=== PATIENT | female | born 1955 | race Caucasian/White ===

== ENCOUNTER 2022-07-31 15:23 | Outpatient (CLI) | payer OTHER, SELFPAY ==
[2022-07-31 12:10] LABS: Albumin* 4.3 g/dL (3.3-5.0); Chloride* 106 mmol/L (96-114); Sodium* 137 mmol/L (135-149)
[2022-07-31 12:11] LABS: Potassium* 4.4 mmol/L (3.6-5.1)
[2022-07-31 12:13] LABS: Alanine Aminotransferase* 17 U/L (4-35); Alkaline Phosphatase* 68 U/L (40-150); Aspartate Amino Transferase* 25 U/L (12-35); Bilirubin Total* 0.6 mg/dL (0.1-1.5); Blood Urea Nitrogen* 15 mg/dL (7-30); Calcium* 9.5 mg/dL (8.4-10.6); Carbon Dioxide* 25 mmol/L (20-32); Cholesterol* 166 mg/dL (90-199); Creatinine* 0.8 mg/dL (0.5-1.5); Estimated Glomerular Filt Rate 82 ml/min; HDL Cholesterol* 78 mg/dL (>=50); LDL Cholesterol Calculated 72 mg/dL (<100); Total Protein* 6.9 g/dL (6.0-8.3); Triglycerides* 78 mg/dL (40-149)
[2022-07-31 12:29] LABS: Glucose* 112 mg/dL (60-115)
[2022-07-31 12:30] LABS: Vitamin D 25 Hydroxy* 37 ng/mL (30-80)
== END 2022-07-31 15:24 | disposition home or self-care (01) ==
PROVIDERS: PCP Family Medicine; Visit Provider Family Medicine
DX: Z01.419 Encounter for gynecological examination (general) (routine) without abnormal findings (principal); E78.5 Hyperlipidemia, unspecified; R73.03 Prediabetes; M81.0 Age-related osteoporosis without current pathological fracture
CPT/HCPCS: 80053; 80061; 82306

== ENCOUNTER 2023-08-10 08:22 | Outpatient (CLI) | payer MEDICARE, BC, SELFPAY | END 2023-08-10 08:23 | disposition home or self-care (01) | PROVIDERS: PCP Internal Medicine; Referring Provider Internal Medicine; Visit Provider Internal Medicine | DX: R73.03 Prediabetes (principal); E78.5 Hyperlipidemia, unspecified; M81.0 Age-related osteoporosis without current pathological fracture | CPT/HCPCS: 80061; 82306 ==

== ENCOUNTER 2023-09-26 15:24 | Outpatient (CLI) | payer MEDICARE, BC, SELFPAY ==
--- NOTE | 2023-09-26 15:30 | CRLHL7_ITS ---
For Patients: As a result of the Century Cures Act, medical imaging exams and procedure reports are released immediately into your electronic medical record. You may view this report before your referring provider. If you have questions, please contact your health care provider. DXA BONE MINERAL DENSITY STUDY Current height (in): 63.0. Weight (lb): 130.0. Menopause age: 56. Ethnicity: White. Reason for exam: Osteopenia. 1. Have you had a previous hip or vertebral fracture? No. 2. Have you had any fractures during your adult life which did not result from significant trauma (e.g., auto accident)? No. 3. Did either of your parents have a hip fracture? No. 4. Do you smoke? No. 5. Have you ever taken Glucocorticoids? No. 6. Do you have rheumatoid arthritis? No. 7. Do you have secondary osteoporosis? No. 8. Do you drink 3 or more alcoholic drinks per day: No. 9. Are you being treated for osteoporosis? Yes. 10. Have you ever taken any of the following medications: Actonel, Evista, Fosamax, Miacalcin, Reclast, Boniva, Forteo, HRT (i.e. estrogen/hormone therapy), Protelos, Prolia, Vitamin D, Calcium, other ??? please specify. ANSWER: Yes, Fosamax, vitamin D. 11. Do you have any of the following medical conditions: Anorexia or bulimia, asthma or emphysema, end stage renal disease, hyperparathyroidism, any seizure disorders, cancer, inflammatory bowel diseases, hysterectomy, other ??? please specify. ANSWER: No. 12. What was your maximum height (inches)? 64. 13. Do you perform weight bearing exercise regularly? No. 14. Do you regularly consume dairy products? Yes. 15. Do you drink caffeinated beverages? Yes. 16. At what age did your period start? 13. 17. Are you premenopausal? No. 18. How many full-term pregnancies have you had? 2. 19. Have you ever missed your period for more than 6 months in a row (not including or menopause)? No. TECHNIQUE: Bone mineral density study was performed using the [employer]. FINDINGS: The results of the study expressed as bone mineral density (BMD) are as follows: Lumbar spine L1 to L4: BMD: 0.625 g/cm2. T-score: -3.8. Z-score: -1.9. Neck Left: BMD: 0.568 g/cm2. T-score: -2.5. Z-score: -0.9. Right: BMD: 0.552 g/cm2. T-score: -2.7. Z-score: -1.1. Total Left: BMD: 0.675 g/cm2. T-score: -2.2. Z-score: -0.9. Right: BMD: 0.689 g/cm2. T-score: -2.1. Z-score: -0.7. IMPRESSION: Osteoporosis. *Comparison exams done prior to 03/2020 were performed on different unit, [facility]. COMPARISON: Compared with scan of 06/09/2020, the bone mineral density has decreased by 3.3 percent at the spine and decreased by 0.3 percent at the hip. Alvaro Manuel M.D. Diagnostic Radiologist [email or web address] Transcribed: 10:09 am DW/Dictated by: Alvaro Manuel MD @ 10/01/2023 6:40:00 AM (Electronically Signed)
== END 2023-09-26 15:25 | disposition home or self-care (01) ==
LOC: RAD 15:26
PROVIDERS: PCP Internal Medicine; Visit Provider Internal Medicine
DX: M81.0 Age-related osteoporosis without current pathological fracture (principal)
CPT/HCPCS: 77080

== ENCOUNTER 2024-08-13 08:02 | Outpatient (CLI) | payer MEDICARE, BC, SELFPAY ==
--- OUTSIDE RECORDS SUMMARY | 2024-08-13 10:38 | XMS_ITS | Clinical Summary ---
Author Organization [facility] Address [place], [place] [address] Care Team Providers Care Yard Assistant Name Role Phone Shira Szymanski MD Primary Care Provider [phone] Allergies No known active allergies Medications Medication Sig Dispensed Refills Start Date End Date Status CLARITIN 10 MG TAB take 1 tablet (10 mg) by oral route once daily 0 08/08/2007 Active FLUTICASONE 50 MCG/ACTUATION NASAL SPRAY, SUSP inhale 2 sprays in each nostril by intranasal route once daily 3 bottles 3 09/09/2007 Active Ventolin HFA 90 mcg/actuation inhaler 07/22/2021 Active alendronate (FOSAMAX) 70 mg tablet TAKE ONE TABLET BY MOUTH EVERY 7 DAYS 10/20/2021 Active rosuvastatin (CRESTOR) 5 mg tablet Take 5 mg by mouth once daily. 10/19/2021 Active sertraline (ZOLOFT) 50 mg tablet Take 50 mg by mouth once daily. 10/31/2021 Active dorzolamide-timolol , PF, 2-0.5 % ophthalmic solution INSTILL 1 DROP INTO LEFT EYE TWICE A DAY 10/31/2021 Active Active Problems Problem Noted Date Diagnosed Date Adjustment disorder with mixed anxiety and depre ssed mood 10/16/2012 Dysthymic disorder 03/10/2008 Unspecified asthma(493.90) 09/09/2007 Allergic rhinitis, cause unspecified 09/09/2007 Immunizations Name Administration Dates Next Due Hepatitis A (Adult) 10/12/2006,06/25/2003 Inactivated Polio Vaccine 08/08/2007 Influenza A (H1N1), Inactiva tea (Age >=3 Years) 10/18/2009 Influenza, IIV3 (Age >=3 years) 07/16/20 12,08/10/2011,08/15/2010,06/29,08/25/2008,08/08/2007 Meningococcal Vaccine (Menactra) 08/08/2007 Rabies Vaccine 09/17/2007,08/29/2007,08/22/2007 09/15/2007 Td (Age >=7 Years) 06/25/2003 Yellow Fever 08/08/2007 Social History Tobacco Use Types Packs/Day Years Used Date Smoking Tobacco: Never Smokeless Tobacco: Never Tobacco Cessation:Counseling Given: Yes Alcohol Use Standard Drinks/Week Comments Yes 0 (1 standard drink = 0.6 oz pur e alcohol) Sex and Gender Information Value Date Recorded Sex Assigned at Not on file Gender Identity Not on file Sexual Orientation Not on file Obstetrics History Last Filed Vital Signs Vital Sign Reading Time Taken Comments Blood Pressure 102/68 11/16/2021 2:18 PM TIRE SETTER tow er Pulse 82 11/16/2021 2:18 PM TIRE SETTER Temperature 36.5 ??C (97.7 ??F) 09/22/2014 7:07 AM CS T Respiratory Rate 14 09/22/2014 9:03 AM TIRE SETTER Oxygen Saturation 95% 11/16/2021 2:18 PM TIRE SETTER Inhaled Oxygen Concentration - - Weight 62.6 kg (138 lb) 11/16/2021 2:18 PM TIRE SETTER Height 160 cm (5' 2.99) 09/18/2014 8:13 AM TIRE SETTER Body Mass Index 24.45 09/18/2014 8:13 AM TIRE SETTER Plan of Treatment Health Maintenance Due Date Last Done Comments Tdap 1967 Depression screening for age 12+ 1968 BMI (ht and wt on same day) for age 18+ 1974 Hepatitis C screening for ag e 18-79 1974 Colonoscopy through age 75 2001 Lipids for age 45-75 2001 Zoster (shingles) series for age 50+ (1 of 2) 2006 Mammogram for age 45-75 01/21/2009 01/22/2008 Tetanus booster 06/25/2013 06/25/2003 DEXA/DXA scan for age 65+ 2021 Pneumococcal series for age 65+ (1 of 1 - PCV) 2021 COVID-19 vaccine series (4 - 2023- season) 2024 09/09/2021, 02/01/2021, 01/11/2021 Influenza for age 65+ 06/29/2024 07/16/2012 , 08/10/2011, 08/15/2010, Additional history exists Medical Devices Implanted Type Area Buckle Gluer Device Identifier Shelf Expiration Date Model / Serial / Lot Lens Iol Zma00 19.5 - [id number] Implanted:Qty: 1 on 09/22/2014 by Alvaro Cabrera MD at [facility] Left: Eye [employer] 03/27/2019 [id number]# / [id number] / Procedures Procedure Name Priority Date/Time Associated Diagnosis Comments XR MAMMO BILAT SCREEN FFDM (IA) Routine 01/22/2008 9:16 AM CDT Screening Mammogram Other from Last 3 Months or Most Recently Relevant to Health Maintenance Results * XR MAMMO BILAT SCREEN FFDM (01/22/2008 9:16 AM CDT) MAMMOGRAM ACR 1 Negative Anatomical Region Laterality Modality BREASTS, Breast Left, Breast Right Bilateral Mammography 01/22/2008 9:16 AM CDT Narrative 01/22/2008 3:37 PM CDT Please see scanned document for results of this study. Procedure Note Yohan Alberto DO - 01/22/2008 Please see scanned document for results of this study. Mayela Garnica PRESIDENT PRACTICING UROLOGIST MAMMO from Last 3 Months or Most Recently Relevant to Health Maintenance Advance Directives * Full Code (Latest Code Status on File) Date Activated Date Inactivated Comments 09/22/2014 6:58 AM 09/22/2014 11:37 AM Care Teams Yard Assistant Relationship Specialty Start Date End Date Shira Szymanski MD PCP - General 12/22/09
== END 2024-08-13 08:03 | disposition home or self-care (01) ==
LOC: NFLDREF 10:31
PROVIDERS: PCP Internal Medicine; Referring Provider Internal Medicine; Visit Provider Internal Medicine
DX: E78.5 Hyperlipidemia, unspecified (principal); M81.0 Age-related osteoporosis without current pathological fracture; R73.03 Prediabetes
CPT/HCPCS: 80061; 82306

== ENCOUNTER 2024-11-06 15:16 | Outpatient (CLI) | payer MEDICARE, BC, SELFPAY ==
--- NOTE | 2024-11-06 15:20 | CRLHL7_ITS ---
For Patients: As a result of the Century Cures Act, medical imaging exams and procedure reports are released immediately into your electronic medical record. You may view this report before your referring provider. If you have questions, please contact your health care provider. BILATERAL SCREENING MAMMOGRAM WITH COMPUTER-AIDED DETECTION AND TOMOSYNTHESIS TECHNIQUE: CC and MLO views were obtained. These mammographic images have been obtained using full-field digital technique. These mammographic images were interpreted with the benefit of computer-aided detection. Breast tomosynthesis was used in this interpretation. COMPARISON FILM: 04/03/23, 03/24/22, 12/13/20. FINDINGS: There are scattered areas of fibroglandular density. IMPRESSION: There is no radiographic evidence for malignancy. ASSESSMENT: BI-RADS Category 1: Negative RECOMMENDATION: Routine screening mammogram in 1 year. A lay language report of this examination will be provided to the patient. ALVARO MCNAIR M.D. Diagnostic Radiologist [email or web address] Transcribed: 11/10/2024, 10:[address]/Dictated by: Alvaro Mcnair MD @ 11/07/2024 11:48:00 AM (Electronically Signed)
== END 2024-11-06 15:17 | disposition home or self-care (01) ==
LOC: MAMMO 15:18
PROVIDERS: PCP Internal Medicine; Visit Provider Internal Medicine
DX: Z12.31 Encounter for screening mammogram for malignant neoplasm of breast (principal)
CPT/HCPCS: 77063; 77067

== ENCOUNTER 2025-06-30 10:25 | Outpatient (CLI) | payer MEDICARE, BC, SELFPAY ==
--- NOTE | 2025-06-30 10:30 | CRLHL7_ITS ---
For Patients: As a result of the Century Cures Act, medical imaging exams and procedure reports are released immediately into your electronic medical record. You may view this report before your referring provider. If you have questions, please contact your health care provider. INDICATION: Squamous cell carcinoma staging. TECHNIQUE: CT of the orbits/face with 80 cc of Isovue 370 contrast. Multiplanar reformats are included. COMPARISON: None. FINDINGS: Orbits: Within normal limits. Facial soft tissues: Within normal limits. Imaged intracranial structures: Within normal limits. Paranasal sinuses and mastoid air cells: Overall well aerated. Osseous structures: Within normal limits. IMPRESSION: 1. No significant orbital/facial soft tissue abnormalities. Please note that all CT scans at this facility use dose modulation, iterative reconstruction, and/or weight-based dosing when appropriate to reduce radiation dose to as low as reasonably achievable. Dictated by Trev Colindres MD @ 06/30/2025 1:05:16 PM (Electronically Signed)
--- NOTE | 2025-06-30 10:30 | CRLHL7_ITS ---
For Patients: As a result of the Century Cures Act, medical imaging exams and procedure reports are released immediately into your electronic medical record. You may view this report before your referring provider. If you have questions, please contact your health care provider. INDICATION: Squamous cell carcinoma TECHNIQUE: CT chest was acquired with 100 cc Omnipaque 350 IV contrast. Coronal and MIP reconstructions were performed. COMPARISON: None. FINDINGS: Lungs and pleura: No suspicious nodules or infiltrates. No pleural effusions, pleural thickening, or pneumothorax. Heart and vasculature: Heart size is normal. Thoracic aorta and pulmonary artery are normal in caliber. Lymph nodes/mediastinum: No mediastinal, hilar, or axillary adenopathy. Chest wall: No masses. Upper abdomen: Normal. Bones: Unremarkable for age. IMPRESSION: No findings for pulmonary metastatic disease. Please note that all CT scans at this facility use dose modulation, iterative reconstruction, and/or weight-based dosing when appropriate to reduce radiation dose to as low as reasonably achievable. Dictated by Jennifer Canales MD @ 06/30/2025 2:01:21 PM (Electronically Signed)
--- NOTE | 2025-06-30 10:30 | CRLHL7_ITS ---
For Patients: As a result of the Century Cures Act, medical imaging exams and procedure reports are released immediately into your electronic medical record. You may view this report before your referring provider. If you have questions, please contact your health care provider. 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 Staging. TECHNIQUE: CT of the neck with 80 cc of Isovue 370 iodinated intravenous contrast agent. COMPARISON: None. FINDINGS: Nasopharynx: Within normal limits. Oropharynx: Within normal limits. Oral cavity: Within normal limits. Supraglottic, glottic and infraglottic larynx: Within normal limits. Hypopharynx: Within normal limits. Airway including the trachea: Within normal limits. Salivary glands and thyroid gland: Parotid glands and submandibular glands are normal in appearance. There is an oval heterogeneously enhancing nodule arising from the left posterior thyroid lobe which measures 14 x 17 millimeters in axial plane and 28 millimeters in craniocaudal plane. Lymph nodes and other cervical soft tissues: 9 x 15 millimeter oval lymph node at the right level 2A station. 6 x 14 millimeter lymph node at the right level 3 te station. A few scattered small lymph nodes within the neck elsewhere at typical te stations. Vascular Structures: Within normal limits. Osseous structures: Within normal limits. Paranasal sinuses and mastoid air cells: Within normal limits. Teeth: Within normal limits. Imaged orbits and intracranial contents: Within normal limits. Imaged chest wall, mediastinum and upper lungs: Within normal limits. IMPRESSION: 1. No visible lesion arising from the right tongue/oral cavity, the site of the patient`s malignancy by history. Beam hardening artifact from dental amalgam does obscure some portions of this region. 2. No definite pathologic lymphadenopathy. A few mildly prominent lymph nodes at the right levels 2 and 3 stations are technically indeterminate but favored to be reactive given their morphology. Please note that all CT scans at this facility use dose modulation, iterative reconstruction, and/or weight-based dosing when appropriate to reduce radiation dose to as low as reasonably achievable. Dictated by Trev Colindres MD @ 06/30/2025 1:14:27 PM (Electronically Signed)
[2025-06-30 10:59] LABS: Creatinine* 0.8 mg/dL (0.5-1.5); Estimated Glomerular Filt Rate 80 ml/min
== END 2025-06-30 10:26 | disposition home or self-care (01) ==
LOC: CT 10:28
PROVIDERS: PCP Internal Medicine; Visit Provider Nurse Practitioner
DX: C02.1 Malignant neoplasm of border of tongue (principal)
CPT/HCPCS: 36415; 70487; 70491; 71260; 82565; Q9967

== ENCOUNTER 2025-08-26 10:08 | Outpatient (CLI) | payer MEDICARE, BC, SELFPAY ==
--- NOTE | 2025-08-26 10:15 | CRLHL7_ITS ---
For Patients: As a result of the Century Cures Act, medical imaging exams and procedure reports are released immediately into your electronic medical record. You may view this report before your referring provider. If you have questions, please contact your health care provider. INDICATION: Status post partial glossectomy, pre radiation treatment TECHNIQUE: Modified barium swallow. Fluoroscopic time 1 minute 6 seconds. FINDINGS/IMPRESSION: Postoperative changes. Swallowing mechanism appears within normal limits. No episodes of penetration or aspiration. Normal epiglottis movement. Dictated by Alvaro Manuel MD @ 08/26/2025 11:15:46 AM (Electronically Signed)
== END 2025-08-26 10:09 | disposition home or self-care (01) ==
LOC: RAD 10:08
PROVIDERS: PCP Internal Medicine; Visit Provider Physician Assistant
DX: C02.9 Malignant neoplasm of tongue, unspecified (principal)
CPT/HCPCS: 74230; 92611